=== PATIENT | female | born 1975 | race Caucasian/White ===

== ENCOUNTER 2019-06-25 20:06 | Inpatient (IN) | payer SELFPAY ==
[~2019-06-25] VITALS: Ht 160 cm; Wt 58.9 kg
[2019-06-25 21:22] LABS: Urine Bacteria FEW /hpf (None Seen); Urine Blood 1+ /uL (Negative); Urine Specific Gravity 1.003 (1.001-1.035); Urine WBC 1 /hpf (0 - 5)
[2019-06-25 22:02] LABS: Basophils # (auto) 0.1 uL; Eosinophils # (auto) 0 uL; Hematocrit 46.1 % (36.0-46.0); Hemoglobin 15.5 g/dL (12.2-16.2); Lymphocytes # (auto) 0.6 uL; Lymphocytes % (auto) 9.5 % (10.0-50.0); Mean Corpuscular Hgb Conc. 33.7 g/dL (32.0-36.0); Mean Corpuscular Volume 95.1 fL (80.0-100.0); Monocytes # (auto) 0.1 uL; Monocytes % (auto) 2.3 % (0.0-12.0); Neutrophils # (auto) 5.2 uL; Neutrophils % (auto) 87.2 % (37.0-80.0); Nucleated Red Blood Cells % 0.1 %; Platelet Count (auto) 294 10^3/uL (140-450); Red Blood Cells 4.85 10^6/uL (4.0-5.20); Red Cell Distribution Width 16.2 % (11.8-14.3)
[2019-06-25 22:20] LABS: INR 0.93 (0.9-1.15); Partial Thromboplastin Time 27.8 sec (23.64-32.05)
[2019-06-25 22:23] LABS: Alanine Aminotransferase 25 U/L (13-56); Albumin 4.3 g/dL (3.4-5.0); Anion Gap 13 (5-15); Blood Urea Nitrogen 8 mg/dL (7-18); Calcium 9.2 mg/dL (8.5-10.1); Carbon Dioxide 22 mmol/L (21-32); Chloride 103 mmol/L (98-107); Glucose 107 mg/dL (74-106); Potassium 3.9 mmol/L (3.5-5.1); Sodium 138 mmol/L (136-145)
[2019-06-25 22:28] LABS: Alkaline Phosphatase 122 U/L (45-117); Aspartate Aminotransferase 36 U/L (15-37); BUN/Creatinine Ratio 10.4; Bilirubin, Total 0.5 mg/dL (0.2-1.0); GFR African American 105 mL/min; GFR Non-African American 87 mL/min; Total Protein 8.7 g/dL (6.4-8.2)
[2019-06-25] MEDS ORDERED: cloNIDine HCL 0.1 MG TAB PO ONE (23:15)
[2019-06-26] MEDS ORDERED: LEVOFLOXACIN 750MG 150 ML IV ONE (03:45)
[2019-06-26] MEDS ORDERED: ALBUTEROL SULF 2.5 MG/0.5ML(0.5%) NEB SOLN NEB ONE (07:00)
[2019-06-26] MEDS ORDERED: chlordiazePOXIDE HCL 25 MG CAP PO PRN (07:00)
[2019-06-26] MEDS ORDERED: MORPHINE SULF INJ 2 MG/ML SYRINGE 1ML IV PRN (07:00)
[2019-06-26] MEDS ORDERED: IPRATROPIUM BROM 0.5 MG/2.5ML INH SOL NEB ONE (07:00)
[2019-06-26 07:41] LABS: Basophils # (auto) 0 uL; Basophils % (auto) 0.6 % (0.0-2.0); Eosinophils # (auto) 0 uL; Eosinophils % (auto) 0.1 % (0.0-7.0); Hematocrit 43.1 % (36.0-46.0); Hemoglobin 14.6 g/dL (12.2-16.2); Lymphocytes # (auto) 1.1 uL; Lymphocytes % (auto) 14.7 % (10.0-50.0); Mean Corpuscular Hemoglobin 32.3 pg (28.0-32.0); Mean Corpuscular Volume 95.2 fL (80.0-100.0); Monocytes # (auto) 0.8 uL; Monocytes % (auto) 10.3 % (0.0-12.0); Neutrophils # (auto) 5.6 uL; Neutrophils % (auto) 74.3 % (37.0-80.0); Platelet Count (auto) 242 10^3/uL (140-450); Red Blood Cells 4.53 10^6/uL (4.0-5.20); Red Cell Distribution Width 15.9 % (11.8-14.3); White Blood Cell 7.5 10^3/uL (4.4-10.8)
[2019-06-26 08:00] LABS: BUN/Creatinine Ratio 11.1; Calcium 9.3 mg/dL (8.5-10.1); Potassium 4.1 mmol/L (3.5-5.1)
[2019-06-26] MEDS: ALBUTEROL SULF 2.5 MG/0.5ML(0.5%) NEB SOLN NEB SCH ×4 (10:10→22:10)
[2019-06-26] MEDS: IPRATROPIUM BROM 0.5 MG/2.5ML INH SOL NEB SCH ×4 (10:10→22:10)
--- NOTE | 2019-06-26 10:20 | NUR ---
ER ADMIT TO 297B Assumed care of patient, awake and alert. No S/S of distress/SOB or pain. Instructed on POC and to call for assist PRN, will continue to monitor. Bed locked in the lowest position. Bed rails up x2. Call light in reach.
[2019-06-26 10:27] VITALS: BP 162/98
[2019-06-26] MEDS: PANTOPRAZOLE 40 MG TAB PO SCH (10:31)
[2019-06-26] MEDS: IBUPROFEN 600 MG TAB PO PRN ×2 (10:32→17:52)
[2019-06-26] MEDS: FOLIC ACID 1 MG TAB PO SCH (10:32)
[2019-06-26 10:33] VITALS: BP 152/100
[2019-06-26 11:59] VITALS: BP 125/100
[2019-06-26 12:00] VITALS: BP 148/98
[2019-06-26] MEDS ORDERED: LABETALOL HCL 5 MG/ML ML 20ML VIAL IV PRN ×2 (12:15)
[2019-06-26] MEDS ORDERED: PANT40TA2 PO (12:20)
[2019-06-26] MEDS ORDERED: NAPR-476 PO (12:20)
[2019-06-26] MEDS ORDERED: ALPR0.25 PO (12:22)
[2019-06-26] MEDS ORDERED: HYDR-4833 PO (12:22)
[2019-06-26] MEDS: guaiFENesin-DM 100/10mg/5ml SYR PO PRN (12:57)
--- NOTE | 2019-06-26 13:20 | NUR ---
DRUG SCREEN URINE OBTAINED AND SENT TO LAB.
[2019-06-26] MEDS ORDERED: cloNIDine HCL 0.1 MG TAB PO SCH (14:00)
[2019-06-26 14:01] LABS: Alcohol, Urine < 3.0 mg/dL (0-5); Amphetamine Screen, Urine NEGATIVE (NEGATIVE); Barbiturate Scree,Urine NEGATIVE (NEGATIVE); Benzodiazephine Screen, Urine NEGATIVE (NEGATIVE); Cannabinoid Screen, Urine NEGATIVE (NEGATIVE); Cocaine Screen, Urine NEGATIVE (NEGATIVE); Opiate Scree,Urine NEGATIVE (NEGATIVE); Phencyclidine Screen, Urine NEGATIVE (NEGATIVE)
[2019-06-26 16:52] VITALS: BP 149/89
--- NOTE | 2019-06-26 19:05 | NUR ---
CLOSING NOTE Patient is awake and alert. No S/S of distress/SOB or pain. Bed locked in the lowest position. Bed rails up x2. Call light in reach. Endorsed care to overnight stocker RN.
[2019-06-26 22:00] VITALS: BP 146/86
[2019-06-27] MEDS: ALBUTEROL SULF 2.5 MG/0.5ML(0.5%) NEB SOLN NEB SCH ×4 (02:07→14:38)
[2019-06-27] MEDS: IPRATROPIUM BROM 0.5 MG/2.5ML INH SOL NEB SCH ×4 (02:07→14:38)
[2019-06-27 05:28] VITALS: BP 132/95
[2019-06-27] MEDS: IBUPROFEN 600 MG TAB PO PRN (06:31)
--- NOTE | 2019-06-27 07:30 | NUR ---
RECEIVED REPORT FROM NIGHT NURSE. PATIENT RESTING IN BED, NO DISTRESS NOTED. WILL CONTINUE TO MONITOR.
[2019-06-27 09:00] VITALS: BP 146/96
[2019-06-27] MEDS ORDERED: cefTRIAXone 1GM/50ML D5W 50 ML IV SCH (09:00)
[2019-06-27] MEDS ORDERED: AZITHROMYCIN 500MG/ 250ML 250 ML IV SCH (10:00)
[2019-06-27] MEDS: guaiFENesin-DM 100/10mg/5ml SYR PO PRN (10:16)
[2019-06-27] MEDS: FOLIC ACID 1 MG TAB PO SCH (10:17)
[2019-06-27] MEDS: PANTOPRAZOLE 40 MG TAB PO SCH (10:17)
--- NOTE | 2019-06-27 14:25 | NUR ---
Discharge instructions given as ordered. Encourage to follow up with PMD as instructed. All questions and concerns addressed. Patient verbalized understanding. Medication reconciliation form completed and copy given to patient. Home medications held in Pharmacy returned to patient, and needed vaccines given. IV removed with catheter intact, pressure dressing applied. Telemetry unit returned to ICU. Patient taken to vehicle via wheelchair with all personal belongings, accompanied by staff and family member. No distress noted at time of departure.
== END 2019-06-27 14:14 | disposition home or self-care (01) | DRG 195 ==
LOC: ER 20:11 → TELE-WESTW 20:12 → ER 06-26 09:34
PROVIDERS: ADMIT Nurse Practitioner Family; ATTEND Nurse Practitioner Family
DX: J18.1 Lobar pneumonia, unspecified organism (principal); F17.210 Nicotine dependence, cigarettes, uncomplicated; F10.10 Alcohol abuse, uncomplicated; I10 Essential (primary) hypertension; K21.9 Gastro-esophageal reflux disease without esophagitis; J45.909 Unspecified asthma, uncomplicated; Z88.1 Allergy status to other antibiotic agents; Z88.5 Allergy status to narcotic agent
CPT/HCPCS: 36415; 71045; 80048; 80053; 80307; 81001; 81025; 83880; 84484; 85025; 85610; 85730; 87070; 87205; 93005; 94640; 96365; 96367; G0378; J0696; J1956

== ENCOUNTER 2020-10-25 14:52 | Inpatient (IN) | payer BC ==
[~2020-10-25] VITALS: Ht 160 cm; Wt 64.7 kg
[~2020-10-25 14:52] MED LIST: ALPR0.25 PO; HYDR-4833 PO; NAPR-476 PO; PANT40TA2 PO
[2020-10-25] MEDS ORDERED: SODIUM CHLORIDE 0.9% 1,000 ML IV ONE (15:30)
[2020-10-25] MEDS ORDERED: PANTOPRAZOLE 40 MG/10 ML VIAL INJ IV ONE (15:45)
[2020-10-25 15:47] LABS: Basophils # (auto) 0 10 ^3/uL (0-0.2); Basophils % (auto) 0.2 % (0.0-2.0); Eosinophils # (auto) 0 10 ^3/uL (0-0.8); Monocytes # (auto) 0.2 10 ^3/uL (0-1.3); Neutrophils # (auto) 5.3 10 ^3/uL (1.6-8.6); Red Blood Cells 1.27 10^6/uL (4.0-5.20)
[2020-10-25 15:50] LABS: Eosinophils % (auto) 0.3 % (0.0-7.0); Hematocrit 16.6 % (36.0-46.0); Lymphocytes # (auto) 1.2 10 ^3/uL (0.4-5.4); Lymphocytes % (auto) 17.5 % (10.0-50.0); Mean Corpuscular Hemoglobin 45.4 pg (28.0-32.0); Mean Corpuscular Hgb Conc. 34.7 g/dL (32.0-36.0); Mean Corpuscular Volume 130.7 fL (80.0-100.0); Monocytes % (auto) 2.7 % (0.0-12.0); Neutrophils % (auto) 79.3 % (37.0-80.0); Nucleated Red Blood Cells % 0.5 %; Platelet Count (auto) 93 10^3/uL (140-450); Red Cell Distribution Width 17.6 % (11.8-14.3); White Blood Cell 6.6 10^3/uL (4.4-10.8)
[2020-10-25 15:53] LABS: Albumin 2.5 g/dL (3.4-5.0); Calcium 7.9 mg/dL (8.5-10.1)
[2020-10-25 15:56] LABS: BUN/Creatinine Ratio 9.3; Bilirubin, Total 2.4 mg/dL (0.2-1.0); Total Protein 5.4 g/dL (6.4-8.2)
[2020-10-25 16:04] LABS: Hemoglobin 5.8 g/dL (12.2-16.2); Potassium 2.9 mmol/L (3.5-5.1)
[2020-10-25 16:06] LABS: INR 1.36 (0.9-1.15); Partial Thromboplastin Time 31.6 sec (23.0-31.2)
[2020-10-25] MEDS ORDERED: SODIUM CHL 3% 500 ML IV ONE (16:15)
[2020-10-25] MEDS ORDERED: POTASSIUM EFFERVESENT TAB 25 MEQ PO ONE (16:30)
[2020-10-25] MEDS ORDERED: PANTOPRAZOLE 40mg/50ML NS AE 50 ML IV ONE (16:30)
[2020-10-25 16:36] LABS: Platelet Count (auto) 93 10^3/uL (140-450)
[2020-10-25] MEDS ORDERED: MORPHINE SULF INJ 2 MG/ML SYRINGE 1ML IV PRN ×6 (16:45→17:15)
[2020-10-25] MEDS ORDERED: POTASSIUM CHLORIDE 60 MEQ, LIDOCAINE 1% (LOCAL ANESTH.) 6 ML in SODIUM CHL 0.9% 500 ML IV ONE (16:45)
[2020-10-25] MEDS ORDERED: NITROGLYCERIN 0.4 MG SL TAB SL PRN ×4 (16:45→17:15)
[2020-10-25] MEDS ORDERED: SOD CHL 0.9%/ KCL 20MEQ 1,000 ML IV ONE (16:45)
[2020-10-25] MEDS ORDERED: ACETAMINOPHEN 500 MG TAB PO ONE (16:45)
[2020-10-25] MEDS ORDERED: diphenhdrAMINE HCL 25 MG CAP PO PRN (16:45)
[2020-10-25] MEDS ORDERED: ALPR0.5T7 PO (16:58)
[2020-10-25] MEDS ORDERED: NAP500T PO (16:59)
[2020-10-25] MEDS ORDERED: DOCUSATE SOD 100 MG CAP PO PRN (17:00)
[2020-10-25] MEDS ORDERED: SUCRALFATE 1 GM/10 ML ORAL SUSP PO SCH (17:00)
[2020-10-25] MEDS ORDERED: ALBUAER3 IN (17:00)
[2020-10-25] MEDS ORDERED: ONDANSETRON HCL 4 MG/2 ML VIAL IV PRN (17:00)
[2020-10-25] MEDS ORDERED: SOD CHL 0.9%/ KCL 20MEQ 1,000 ML IV SCH (17:00)
[2020-10-25] MEDS ORDERED: ALUM & MAG HYDROX-SIMETH LIQ(MAALOX) 30 ML PO PRN (17:00)
[2020-10-25] MEDS ORDERED: LORazepam 0.5 MG TAB PO PRN (17:00)
[2020-10-25] MEDS ORDERED: SUCRALFATE 1 GM/10 ML ORAL SUSP PO ONE ×2 (17:00)
[2020-10-25] MEDS ORDERED: ALBUMIN 25% 100 ML IV ONE (17:15)
[2020-10-25] MEDS ORDERED: cefTRIAXone 1GM/50ML D5W 50 ML IV ONE (17:15)
[2020-10-25] MEDS ORDERED: ACETAMINOPHEN 325 MG TAB PO ONE (21:12)
[2020-10-25] MEDS: SOD CHL 0.9%/ KCL 20MEQ 1,000 ML IV SCH (21:53)
[2020-10-25] MEDS ORDERED: PANTOPRAZOLE 40 MG/10 ML VIAL INJ IV SCH (22:00)
[2020-10-25] MEDS: PROPRANOLOL HCL 20 MG TAB PO SCH (22:00)
[2020-10-25] MEDS: PANTOPRAZOLE 40 MG/10 ML VIAL INJ IV SCH (22:00)
[2020-10-25 22:07] LABS: Free T4 (Free Thyroxine) 1.11 ng/dL (0.89-1.76)
[2020-10-26] VITALS (16 sets, daily range): BP systolic 88–103; BP diastolic 39–75
[2020-10-26 00:08] LABS: T3 Total 0.6 ng/mL (0.60-1.81)
[2020-10-26] MEDS ORDERED: SOD CHL 0.9%/ KCL 20MEQ 1,000 ML IV SCH (01:05)
[2020-10-26] MEDS: ALBUMIN 25% 100 ML IV SCH ×2 (02:20→09:36)
[2020-10-26] MEDS: SOD CHL 0.9%/ KCL 20MEQ 1,000 ML IV SCH ×2 (06:18→19:40)
[2020-10-26] MEDS: SUCRALFATE 1 GM/10 ML ORAL SUSP PO SCH ×4 (06:51→22:01)
[2020-10-26 09:06] LABS: Cholesterol 69 mg/dL (< 200)
[2020-10-26] MEDS: cefTRIAXone 1GM/50ML D5W 50 ML IV SCH (09:08)
[2020-10-26 09:10] LABS: HDL Cholesterol 20 mg/dL (40-59); LDL Cholesterol 38 mg/dL (< 100); Triglycerides 89 mg/dL (< 150)
[2020-10-26 09:18] LABS: Urine Bacteria FEW /hpf (None Seen); Urine Blood 3+ /uL (Negative); Urine Specific Gravity 1.003 (1.001-1.035); Urine WBC 40 /hpf (0 - 5)
[2020-10-26 09:31] LABS: Sodium Urine 8 mmol/L (40-220)
[2020-10-26 09:40] LABS: Amphetamine Screen, Urine NEGATIVE (NEGATIVE); Barbiturate Scree,Urine NEGATIVE (NEGATIVE); Cannabinoid Screen, Urine NEGATIVE (NEGATIVE)
[2020-10-26 09:42] LABS: Alcohol, Urine < 3.0 mg/dL (0-10); Benzodiazephine Screen, Urine NEGATIVE (NEGATIVE); Cocaine Screen, Urine NEGATIVE (NEGATIVE); Opiate Scree,Urine NEGATIVE (NEGATIVE); Phencyclidine Screen, Urine NEGATIVE (NEGATIVE)
[2020-10-26] MEDS: SPIRONOLACTONE 25 MG TAB PO SCH (09:53)
[2020-10-26] MEDS: FUROSEMIDE 20 MG TAB PO SCH (09:53)
[2020-10-26] MEDS: PANTOPRAZOLE 40 MG/10 ML VIAL INJ IV SCH (09:54)
[2020-10-26] MEDS: PROPRANOLOL HCL 20 MG TAB PO SCH (09:54)
[2020-10-26] MEDS ORDERED: THIAMINE 100mg/ml INJ (200mg/2ml VIAL) IV ONE (10:45)
[2020-10-26] MEDS ORDERED: FOLIC ACID 1 MG in D5W 5% 50 ML INJ ONE (10:45)
[2020-10-26 11:00] LABS: Basophils # (auto) 0 10 ^3/uL (0-0.2); Basophils % (auto) 0.1 % (0.0-2.0); Eosinophils # (auto) 0 10 ^3/uL (0-0.8); Eosinophils % (auto) 0.1 % (0.0-7.0); Hemoglobin 9.2 g/dL (12.2-16.2); Lymphocytes # (auto) 0.6 10 ^3/uL (0.4-5.4); Monocytes # (auto) 0.1 10 ^3/uL (0-1.3); Neutrophils # (auto) 3.5 10 ^3/uL (1.6-8.6); White Blood Cell 4.2 10^3/uL (4.4-10.8)
[2020-10-26 11:02] LABS: Hematocrit 27.1 % (36.0-46.0); Lymphocytes % (auto) 14.1 % (10.0-50.0); Mean Corpuscular Hemoglobin 34.3 pg (28.0-32.0); Mean Corpuscular Hgb Conc. 33.9 g/dL (32.0-36.0); Monocytes % (auto) 3.5 % (0.0-12.0); Neutrophils % (auto) 82.2 % (37.0-80.0); Nucleated Red Blood Cells % 0.5 %; Platelet Count (auto) 60 10^3/uL (140-450); Red Blood Cells 2.68 10^6/uL (4.0-5.20)
[2020-10-26 11:10] LABS: Albumin 3.4 g/dL (3.4-5.0); Calcium 8.1 mg/dL (8.5-10.1); Potassium 4.3 mmol/L (3.5-5.1)
[2020-10-26 11:12] LABS: Red Cell Distribution Width 34.4 % (11.8-14.3)
[2020-10-26 11:13] LABS: BUN/Creatinine Ratio 7.1; Bilirubin, Total 4.2 mg/dL (0.2-1.0); Total Protein 6.1 g/dL (6.4-8.2)
[2020-10-26 12:28] LABS: Hepatitis A Ab IgM Negative; Hepatitis B Core IgM Negative
[2020-10-26 12:29] LABS: Hepatitis B Surface Antigen Negative (Negative); Hepatitis C Antibody Negative (Negative)
[2020-10-26] MEDS: PANTOPRAZOLE 40 MG TAB PO SCH (22:02)
[2020-10-27] VITALS: BP 96/65
[2020-10-27] MEDS: LORazepam 0.5 MG TAB PO PRN ×2 (00:43→21:53)
[2020-10-27 05:43] LABS: Basophils # (auto) 0 10 ^3/uL (0-0.2); Eosinophils # (auto) 0 10 ^3/uL (0-0.8); Hemoglobin 8.1 g/dL (12.2-16.2); Lymphocytes # (auto) 0.9 10 ^3/uL (0.4-5.4); Monocytes # (auto) 0.1 10 ^3/uL (0-1.3); Platelet Count (auto) 63 10^3/uL (140-450); White Blood Cell 3.9 10^3/uL (4.4-10.8)
[2020-10-27 05:47] LABS: Basophils % (auto) 0.2 % (0.0-2.0); Eosinophils % (auto) 0.3 % (0.0-7.0); Hematocrit 23.3 % (36.0-46.0); Lymphocytes % (auto) 23.7 % (10.0-50.0); Mean Corpuscular Hemoglobin 35.3 pg (28.0-32.0); Mean Corpuscular Hgb Conc. 34.8 g/dL (32.0-36.0); Mean Corpuscular Volume 101.4 fL (80.0-100.0); Monocytes % (auto) 3.1 % (0.0-12.0); Neutrophils # (auto) 2.8 10 ^3/uL (1.6-8.6); Neutrophils % (auto) 72.7 % (37.0-80.0); Nucleated Red Blood Cells % 0.6 %
[2020-10-27] MEDS: SUCRALFATE 1 GM/10 ML ORAL SUSP PO SCH ×4 (05:51→21:53)
[2020-10-27 05:58] LABS: INR 1.42 (0.9-1.15); Partial Thromboplastin Time 34.7 sec (23.0-31.2)
[2020-10-27 06:01] LABS: Potassium 4.1 mmol/L (3.5-5.1)
[2020-10-27 06:10] LABS: Albumin 3.4 g/dL (3.4-5.0); BUN/Creatinine Ratio 8.1; Bilirubin, Total 2.8 mg/dL (0.2-1.0); Calcium 7.9 mg/dL (8.5-10.1); Total Protein 5.9 g/dL (6.4-8.2)
[2020-10-27 06:34] LABS: Red Cell Distribution Width 34.3 % (11.8-14.3)
[2020-10-27 08:00] VITALS: BP 109/67
[2020-10-27] MEDS: cefTRIAXone 1GM/50ML D5W 50 ML IV SCH (08:59)
[2020-10-27 09:00] VITALS: BP 109/67
[2020-10-27] MEDS: SOD CHL 0.9%/ KCL 20MEQ 1,000 ML IV SCH (09:00)
[2020-10-27] MEDS: FUROSEMIDE 20 MG TAB PO SCH (10:29)
[2020-10-27] MEDS: SPIRONOLACTONE 25 MG TAB PO SCH (10:29)
[2020-10-27] MEDS: PANTOPRAZOLE 40 MG TAB PO SCH ×2 (10:29→21:53)
[2020-10-27] MEDS: THIAMINE 100mg/ml INJ (200mg/2ml VIAL) IV SCH (10:30)
[2020-10-27] MEDS ORDERED: LIDOCAINE VISCOUS 2% 15ML UD ONE (10:36)
[2020-10-27] MEDS ORDERED: diphenhdrAMINE HCL 50 MG/1 ML VL ONE (10:37)
[2020-10-27] MEDS ORDERED: FLUMAZENIL 0.1 MG/ML INJ 10ML MDV IV ONE (10:42)
[2020-10-27] MEDS ORDERED: NALOXONE HCL 0.4 MG/ML VIAL ONE (10:42)
[2020-10-27] MEDS: MIDAZOLAM HCL 5 MG/ML-1ML VIAL ONE ×2 (11:53→11:58)
[2020-10-27] MEDS: fentaNYL CITRATE 100 MCG/2 ML VL ONE ×2 (11:53→11:58)
[2020-10-27] MEDS: FOLIC ACID 1 MG in D5W 5% 50 ML INJ SCH (13:25)
[2020-10-27 16:00] VITALS: BP 106/62
[2020-10-27] MEDS ORDERED: LORazepam 2MG/ML-1ML VIAL ONE (21:47)
[2020-10-28] VITALS: BP 97/80
[2020-10-28 05:00] VITALS: BP 103/67
[2020-10-28 05:45] LABS: Basophils # (auto) 0 10 ^3/uL (0-0.2); Eosinophils # (auto) 0 10 ^3/uL (0-0.8); Hemoglobin 7.3 g/dL (12.2-16.2); Lymphocytes % (auto) 27.9 % (10.0-50.0); Monocytes # (auto) 0.1 10 ^3/uL (0-1.3); Neutrophils # (auto) 2.3 10 ^3/uL (1.6-8.6); White Blood Cell 3.4 10^3/uL (4.4-10.8)
[2020-10-28 05:46] LABS: Basophils % (auto) 0.3 % (0.0-2.0); Eosinophils % (auto) 0.6 % (0.0-7.0); Mean Corpuscular Hemoglobin 34.9 pg (28.0-32.0); Mean Corpuscular Hgb Conc. 34.9 g/dL (32.0-36.0); Mean Corpuscular Volume 99.7 fL (80.0-100.0); Monocytes % (auto) 3.9 % (0.0-12.0); Neutrophils % (auto) 67.3 % (37.0-80.0); Nucleated Red Blood Cells % 0.7 %; Platelet Count (auto) 61 10^3/uL (140-450)
[2020-10-28 05:50] LABS: Red Cell Distribution Width 33.8 % (11.8-14.3)
[2020-10-28 06:09] LABS: Albumin 3.1 g/dL (3.4-5.0); Calcium 7.8 mg/dL (8.5-10.1); Potassium 3.6 mmol/L (3.5-5.1)
[2020-10-28 06:14] LABS: BUN/Creatinine Ratio 8.8; Bilirubin, Total 1.6 mg/dL (0.2-1.0); Total Protein 5.3 g/dL (6.4-8.2)
[2020-10-28] MEDS: SUCRALFATE 1 GM/10 ML ORAL SUSP PO SCH ×2 (06:26→11:23)
[2020-10-28 08:00] VITALS: BP 100/68
[2020-10-28] MEDS: FOLIC ACID 1 MG in D5W 5% 50 ML INJ SCH (10:00)
[2020-10-28] MEDS: THIAMINE 100mg/ml INJ (200mg/2ml VIAL) IV SCH (10:25)
[2020-10-28] MEDS: cefTRIAXone 1GM/50ML D5W 50 ML IV SCH (10:25)
[2020-10-28] MEDS: SPIRONOLACTONE 25 MG TAB PO SCH (10:26)
[2020-10-28] MEDS: FUROSEMIDE 20 MG TAB PO SCH (10:28)
[2020-10-28] MEDS: PANTOPRAZOLE 40 MG TAB PO SCH (10:29)
[2020-10-28 14:05] VITALS: BP 100/68
== END 2020-10-28 15:32 | disposition home or self-care (01) | DRG 811 ==
LOC: ER 14:52 → TELE 14:53 → TELE-CENTR 10-26 03:15
PROVIDERS: ADMIT Hospitalist; ATTEND Internal Medicine
PROC: 30233K1 Transfusion of Nonautologous Frozen Plasma into Peripheral Vein, Percutaneous Approach (ICD-10-PCS; 2020-10-26)
PROC: 30233N1 Transfusion of Nonautologous Red Blood Cells into Peripheral Vein, Percutaneous Approach (ICD-10-PCS; 2020-10-26)
PROC: 0DJ08ZZ Inspection of Upper Intestinal Tract, Via Natural or Artificial Opening Endoscopic (ICD-10-PCS; principal; 2020-10-27 11:59)
DX: D50.0 Iron deficiency anemia secondary to blood loss (chronic) (principal); E43 Unspecified severe protein-calorie malnutrition; N39.0 Urinary tract infection, site not specified; D68.4 Acquired coagulation factor deficiency; D84.9 Immunodeficiency, unspecified; E87.1 Hypo-osmolality and hyponatremia; K29.00 Acute gastritis without bleeding; Z20.822 Contact with and (suspected) exposure to COVID-19; K21.9 Gastro-esophageal reflux disease without esophagitis; K29.20 Alcoholic gastritis without bleeding; K57.30 Diverticulosis of large intestine without perforation or abscess without bleeding; K70.30 Alcoholic cirrhosis of liver without ascites; K72.90 Hepatic failure, unspecified without coma; K80.20 Calculus of gallbladder without cholecystitis without obstruction; N92.0 Excessive and frequent menstruation with regular cycle; D69.6 Thrombocytopenia, unspecified; D75.89 Other specified diseases of blood and blood-forming organs; E03.9 Hypothyroidism, unspecified; E87.6 Hypokalemia; E87.70 Fluid overload, unspecified; F17.210 Nicotine dependence, cigarettes, uncomplicated; F41.9 Anxiety disorder, unspecified; G89.4 Chronic pain syndrome; Z83.3 Family history of diabetes mellitus; Z82.49 Family history of ischemic heart disease and other diseases of the circulatory system; Z79.899 Other long term (current) drug therapy; Z79.891 Long term (current) use of opiate analgesic; Z79.01 Long term (current) use of anticoagulants; Z88.8 Allergy status to other drugs, medicaments and biological substances; Z88.5 Allergy status to narcotic agent; Z68.25 Body mass index [BMI] 25.0-25.9, adult
CPT/HCPCS: 36415; 43235; 71045; 74176; 76856; 80053; 80061; 80074; 80307; 81001; 82140; 82270; 82533; 83036; 83540; 83550; 83735; 83880; 83930; 84133; 84300; 84439; 84443; 84480; 84484; 84702; 85025; 85384; 85610; 85730; 86850; 86900; 86901; 86920; 87040; 87086; 87426; 87493; G0378; J0696; J2001; J2250; J2405; J7060; P9047

== ENCOUNTER 2022-12-26 17:51 | Inpatient (IN) | payer BC, MEDICAID ==
[~2022-12-26] VITALS: Ht 162.6 cm; Wt 63.4 kg
[~2022-12-26 17:51] MED LIST changes: +ALBUAER3 IN; -ALPR0.25 PO; +ALPR0.5T7 PO; -HYDR-4833 PO; +NAP500T PO; -NAPR-476 PO
[2022-12-26 21:06] LABS: Albumin 3.6 g/dL (3.4-5.0); BUN/Creatinine Ratio 28.2; Bilirubin, Total 0.8 mg/dL (0.2-1.0); Calcium 9.2 mg/dL (8.5-10.1); Potassium 3.6 mmol/L (3.5-5.1); Total Protein 7.5 g/dL (6.4-8.2)
[2022-12-26 21:23] LABS: Basophils # (auto) 0 10 ^3/uL (0-0.2); Basophils % (auto) 0.3 % (0.0-2.0); Eosinophils # (auto) 0 10 ^3/uL (0-0.8); Hematocrit 47.7 % (36.0-46.0); Hemoglobin 16.6 g/dL (12.2-16.2); Lymphocytes # (auto) 1.4 10 ^3/uL (0.4-5.4); Lymphocytes % (auto) 12.4 % (10.0-50.0); Mean Corpuscular Hgb Conc. 34.8 g/dL (32.0-36.0); Mean Corpuscular Volume 94.9 fL (80.0-100.0); Monocytes # (auto) 0.4 10 ^3/uL (0-1.3); Monocytes % (auto) 3.6 % (0.0-12.0); Neutrophils # (auto) 9.6 10 ^3/uL (1.6-8.6); Neutrophils % (auto) 83.7 % (37.0-80.0); Nucleated Red Blood Cells % 0.5 %; Red Blood Cells 5.03 10^6/uL (4.0-5.20); Red Cell Distribution Width 13.9 % (11.8-14.3); White Blood Cell 11.5 10^3/uL (4.4-10.8)
[2022-12-26 21:43] LABS: INR 1.19 (0.9-1.15); Partial Thromboplastin Time 34.5 sec (24.6-33.4)
[2022-12-27] MEDS ORDERED: LORazepam 2MG/ML-1ML VIAL IV ONE (04:00)
[2022-12-27] MEDS ORDERED: LORazepam 2MG/ML-1ML VIAL IV PRN ×3 (04:30→17:30)
[2022-12-27] MEDS ORDERED: DOCUSATE SOD 100 MG CAP PO PRN (05:00)
[2022-12-27] MEDS ORDERED: ALPRAZolam 0.5 MG TAB PO PRN (05:00)
[2022-12-27] MEDS ORDERED: ONDANSETRON HCL 4 MG/2 ML VIAL IV PRN (05:00)
[2022-12-27] MEDS ORDERED: IBUPROFEN 600 MG TAB PO PRN (05:00)
[2022-12-27] MEDS ORDERED: AZITHROMYCIN 500MG/ 250ML 250 ML IV ONE (05:00)
[2022-12-27] MEDS ORDERED: NITROGLYCERIN 0.4 MG SL TAB SL PRN (05:00)
[2022-12-27] MEDS ORDERED: SOD CHL 0.45% 1,000 ML IV SCH (05:00)
[2022-12-27] MEDS ORDERED: TEMAZEPAM 15 MG CAP PO PRN (05:00)
[2022-12-27 05:47] LABS: Basophils # (auto) 0 10 ^3/uL (0-0.2); Basophils % (auto) 0.3 % (0.0-2.0); Eosinophils # (auto) 0 10 ^3/uL (0-0.8); Hematocrit 45.4 % (36.0-46.0); Hemoglobin 15.8 g/dL (12.2-16.2); Lymphocytes # (auto) 1.7 10 ^3/uL (0.4-5.4); Lymphocytes % (auto) 10.8 % (10.0-50.0); Mean Corpuscular Hgb Conc. 34.7 g/dL (32.0-36.0); Mean Corpuscular Volume 95.2 fL (80.0-100.0); Monocytes # (auto) 0.8 10 ^3/uL (0-1.3); Monocytes % (auto) 5.1 % (0.0-12.0); Neutrophils # (auto) 13.1 10 ^3/uL (1.6-8.6); Neutrophils % (auto) 83.8 % (37.0-80.0); Nucleated Red Blood Cells % 0.1 %; Red Blood Cells 4.78 10^6/uL (4.0-5.20); Red Cell Distribution Width 14.3 % (11.8-14.3); White Blood Cell 15.6 10^3/uL (4.4-10.8)
[2022-12-27 06:02] LABS: Albumin 3.7 g/dL (3.4-5.0); Calcium 9.7 mg/dL (8.5-10.1); Potassium 3.6 mmol/L (3.5-5.1)
[2022-12-27 06:22] LABS: Bilirubin, Total 0.8 mg/dL (0.2-1.0); Total Protein 7.8 g/dL (6.4-8.2)
[2022-12-27] MEDS ORDERED: HALOPERIDOL LACTATE 5 MG/ML INJ VIAL IM ONE (06:45)
[2022-12-27] MEDS ORDERED: cefTRIAXone 1GM/50ML D5W 50 ML IV ONE (13:00)
[2022-12-27 13:59] LABS: Urine Bacteria NONE SEEN /hpf (None Seen); Urine Blood Negative /uL (Negative); Urine Mucus FEW (None Seen); Urine Specific Gravity 1.036 (1.001-1.035); Urine WBC 34 /hpf (0 - 5)
[2022-12-27 14:52] LABS: Amphetamine Screen, Urine NEGATIVE (NEGATIVE); Barbiturate Scree,Urine NEGATIVE (NEGATIVE); Benzodiazephine Screen, Urine POSITIVE (NEGATIVE); Cannabinoid Screen, Urine POSITIVE (NEGATIVE); Cocaine Screen, Urine NEGATIVE (NEGATIVE)
[2022-12-27 15:01] LABS: Opiate Scree,Urine POSITIVE (NEGATIVE); Phencyclidine Screen, Urine NEGATIVE (NEGATIVE)
[2022-12-27] MEDS: AZITHROMYCIN 500MG/ 250ML 250 ML IV SCH (15:34)
[2022-12-27] MEDS: PANTOPRAZOLE 40 MG/10 ML VIAL INJ IV SCH (16:19)
[2022-12-27] MEDS: SODIUM CHLORIDE 0.9% 1,000 ML IV SCH ×2 (16:20→21:00)
[2022-12-28 00:50] VITALS: BP 121/72
[2022-12-28 05:00] VITALS: BP 127/62
[2022-12-28] MEDS: SODIUM CHLORIDE 0.9% 1,000 ML IV SCH ×2 (05:00→13:00)
[2022-12-28 06:09] LABS: Basophils # (auto) 0 10 ^3/uL (0-0.2); Basophils % (auto) 0.1 % (0.0-2.0); Eosinophils # (auto) 0 10 ^3/uL (0-0.8); Hematocrit 44.2 % (36.0-46.0); Hemoglobin 15.1 g/dL (12.2-16.2); Lymphocytes # (auto) 2.2 10 ^3/uL (0.4-5.4); Mean Corpuscular Hemoglobin 32.7 pg (28.0-32.0); Mean Corpuscular Hgb Conc. 34.3 g/dL (32.0-36.0); Mean Corpuscular Volume 95.3 fL (80.0-100.0); Monocytes # (auto) 0.6 10 ^3/uL (0-1.3); Monocytes % (auto) 4.5 % (0.0-12.0); Neutrophils # (auto) 10.7 10 ^3/uL (1.6-8.6); Neutrophils % (auto) 79.4 % (37.0-80.0); Nucleated Red Blood Cells % 0.1 %; Red Blood Cells 4.63 10^6/uL (4.0-5.20); Red Cell Distribution Width 14.7 % (11.8-14.3); White Blood Cell 13.4 10^3/uL (4.4-10.8)
[2022-12-28 06:22] LABS: Albumin 3.7 g/dL (3.4-5.0); BUN/Creatinine Ratio 41.3; Calcium 9.3 mg/dL (8.5-10.1); Potassium 3.5 mmol/L (3.5-5.1)
[2022-12-28 06:25] LABS: Bilirubin, Total 0.9 mg/dL (0.2-1.0); Total Protein 6.9 g/dL (6.4-8.2)
[2022-12-28 09:00] VITALS: BP 134/73
[2022-12-28] MEDS: PANTOPRAZOLE 40 MG/10 ML VIAL INJ IV SCH (09:36)
[2022-12-28] MEDS: THIAMINE 100mg/ml INJ (200mg/2ml VIAL) IV SCH (09:36)
[2022-12-28] MEDS: cefTRIAXone 1GM/50ML D5W 50 ML IV SCH (09:36)
[2022-12-28] MEDS: AZITHROMYCIN 500MG/ 250ML 250 ML IV SCH (11:26)
[2022-12-28 13:00] VITALS: BP 137/88
[2022-12-28] MEDS ORDERED: HYDROcodone-ACET 5/325MG TAB PO PRN (16:00)
[2022-12-28] MEDS ORDERED: HYDROcodone-ACET 5/325MG TAB PO ONE (16:00)
[2022-12-28 18:11] VITALS: BP 132/78
[2022-12-28] MEDS ORDERED: ALPRAZolam 0.5 MG TAB PO PRN (20:00)
[2022-12-28 22:00] VITALS: BP 153/86
[2022-12-29 05:00] VITALS: BP 119/77
[2022-12-29 06:12] LABS: Basophils # (auto) 0 10 ^3/uL (0-0.2); Basophils % (auto) 0.2 % (0.0-2.0); Eosinophils # (auto) 0 10 ^3/uL (0-0.8); Eosinophils % (auto) 0.1 % (0.0-7.0); Hematocrit 47.6 % (36.0-46.0); Hemoglobin 15.7 g/dL (12.2-16.2); Lymphocytes # (auto) 2.5 10 ^3/uL (0.4-5.4); Lymphocytes % (auto) 20.3 % (10.0-50.0); Mean Corpuscular Hemoglobin 32.6 pg (28.0-32.0); Mean Corpuscular Volume 98.7 fL (80.0-100.0); Monocytes # (auto) 0.7 10 ^3/uL (0-1.3); Monocytes % (auto) 5.4 % (0.0-12.0); Neutrophils # (auto) 9.1 10 ^3/uL (1.6-8.6); Nucleated Red Blood Cells % 0.2 %; Red Blood Cells 4.82 10^6/uL (4.0-5.20); Red Cell Distribution Width 14.6 % (11.8-14.3); White Blood Cell 12.2 10^3/uL (4.4-10.8)
[2022-12-29 07:46] LABS: BUN/Creatinine Ratio 28.6; Calcium 9.2 mg/dL (8.5-10.1); Potassium 4.3 mmol/L (3.5-5.1)
[2022-12-29 09:00] VITALS: BP 137/81
[2022-12-29] MEDS: PANTOPRAZOLE 40 MG/10 ML VIAL INJ IV SCH (10:05)
[2022-12-29] MEDS: cefTRIAXone 1GM/50ML D5W 50 ML IV SCH (10:06)
[2022-12-29] MEDS: THIAMINE 100mg/ml INJ (200mg/2ml VIAL) IV SCH (10:06)
[2022-12-29] MEDS: AZITHROMYCIN 500MG/ 250ML 250 ML IV SCH (11:15)
[2022-12-29 13:00] VITALS: BP 140/86
[2022-12-29 17:00] VITALS: BP 127/82
== END 2022-12-29 20:00 | disposition left against medical advice (07) | DRG 871 ==
LOC: EDUNIT# 17:51 → EDBD 17:51 → ER 17:51 → TELE 12-27 05:00 → TELE-EAST 12-27 23:30
PROVIDERS: ADMIT Nurse Practitioner Family; ATTEND Internal Medicine
DX: A41.9 Sepsis, unspecified organism (principal); G93.41 Metabolic encephalopathy; J18.9 Pneumonia, unspecified organism; N39.0 Urinary tract infection, site not specified; K74.60 Unspecified cirrhosis of liver; E86.0 Dehydration; F17.210 Nicotine dependence, cigarettes, uncomplicated; K21.9 Gastro-esophageal reflux disease without esophagitis; M54.50 Low back pain, unspecified; Z53.29 Procedure and treatment not carried out because of patient's decision for other reasons; R79.89 Other specified abnormal findings of blood chemistry; F10.10 Alcohol abuse, uncomplicated; J06.9 Acute upper respiratory infection, unspecified; Z20.822 Contact with and (suspected) exposure to COVID-19; G89.29 Other chronic pain; K76.82 Hepatic encephalopathy; Z79.891 Long term (current) use of opiate analgesic; Z88.6 Allergy status to analgesic agent; Z82.49 Family history of ischemic heart disease and other diseases of the circulatory system; Z83.3 Family history of diabetes mellitus
CPT/HCPCS: 36415; 70450; 70551; 71045; 80048; 80053; 80307; 81001; 82140; 83735; 85025; 85610; 85730; 87086; 87278; 87426; 95819; 96365; 96367; 96372; 96375; 99291; C9113; G0378; J0696

== ENCOUNTER 2023-05-24 10:12 | Emergency (ER) | payer OTHER ==
[~2023-05-24] VITALS: Ht 160 cm; Wt 63.6 kg
[2023-05-24] MEDS ORDERED: SODIUM CHLORIDE 0.9% 1,000 ML IV ONE (10:30)
[2023-05-24 10:56] LABS: Albumin 3.7 g/dL (3.4-5.0); Calcium 8.9 mg/dL (8.5-10.1); Potassium 3.3 mmol/L (3.5-5.1)
[2023-05-24 10:59] LABS: BUN/Creatinine Ratio 17.9 (10.0-20.0); Bilirubin, Total 0.7 mg/dL (0.2-1.0); Total Protein 7.4 g/dL (6.4-8.2)
[2023-05-24 11:00] LABS: Basophils # (auto) 0.1 10 ^3/uL (0-0.2); Basophils % (auto) 0.6 % (0.0-2.0); Eosinophils # (auto) 0 10 ^3/uL (0-0.8); Hematocrit 44.7 % (36.0-46.0); Hemoglobin 15.3 g/dL (12.2-16.2); Lymphocytes # (auto) 1.5 10 ^3/uL (0.4-5.4); Lymphocytes % (auto) 14.5 % (10.0-50.0); Mean Corpuscular Hemoglobin 32.6 pg (28.0-32.0); Mean Corpuscular Hgb Conc. 34.2 g/dL (32.0-36.0); Mean Corpuscular Volume 95.3 fL (80.0-100.0); Monocytes # (auto) 0.4 10 ^3/uL (0-1.3); Monocytes % (auto) 4.2 % (0.0-12.0); Neutrophils # (auto) 8.1 10 ^3/uL (1.6-8.6); Neutrophils % (auto) 80.7 % (37.0-80.0); Red Blood Cells 4.69 10^6/uL (4.0-5.20); Red Cell Distribution Width 13.6 % (11.8-14.3)
[2023-05-24 16:00] VITALS: BP 121/70; PULSE 68; RESP 15; TEMP 98.6; O2SAT 99
== END 2023-05-24 16:22 | disposition home or self-care (01) ==
LOC: ER 10:12
DX: R11.2 Nausea with vomiting, unspecified (principal); R10.84 Generalized abdominal pain; R19.7 Diarrhea, unspecified; R10.2 Pelvic and perineal pain; K21.9 Gastro-esophageal reflux disease without esophagitis; F17.210 Nicotine dependence, cigarettes, uncomplicated; Z90.49 Acquired absence of other specified parts of digestive tract; Z79.899 Other long term (current) drug therapy
CPT/HCPCS: 36415; 76705; 76801; 76817; 80053; 82140; 84484; 84702; 85025; 96360; 99284; J7030

== ENCOUNTER 2024-04-02 23:33 | Inpatient (IN) | payer OTHER ==
[~2024-04-02] VITALS: Ht 160 cm; Wt 72.7 kg
[~2024-04-02 23:33] MED LIST changes: +NICO7DIS19 TD; +PROM25TA10 PO; +ZOFR4T SL
[2024-04-03] VITALS (8 sets, daily range): BP systolic 130–148; BP diastolic 70–83; PULSE 64–89; RESP 16–20; TEMP 98–98.4; O2SAT 93–99
[2024-04-03 00:32] LABS: Basophils # (auto) 0.1 10 ^3/uL (0-0.2); Basophils % (auto) 0.6 % (0.0-2.0); Eosinophils # (auto) 0 10 ^3/uL (0-0.8); Eosinophils % (auto) 0.3 % (0.0-7.0); Hematocrit 35.7 % (36.0-46.0); Hemoglobin 11.7 g/dL (12.2-16.2); Lymphocytes # (auto) 1.1 10 ^3/uL (0.4-5.4); Lymphocytes % (auto) 13.2 % (10.0-50.0); Mean Corpuscular Hemoglobin 27.2 pg (28.0-32.0); Mean Corpuscular Hgb Conc. 32.9 g/dL (32.0-36.0); Mean Corpuscular Volume 82.7 fL (80.0-100.0); Monocytes # (auto) 0.4 10 ^3/uL (0-1.3); Monocytes % (auto) 4.6 % (0.0-12.0); Neutrophils # (auto) 6.8 10 ^3/uL (1.6-8.6); Neutrophils % (auto) 81.3 % (37.0-80.0); Red Blood Cells 4.32 10^6/uL (4.0-5.20); Red Cell Distribution Width 19.9 % (11.8-14.3); White Blood Cell 8.3 10^3/uL (4.4-10.8)
[2024-04-03 00:44] LABS: INR 1.01 (0.9-1.15); Prothrombin Time 10.7 sec (9.3-11.8)
[2024-04-03 00:51] LABS: Alanine Aminotransferase 21 U/L (7-40); Albumin 3.7 g/dL (3.2-4.8); Alkaline Phosphatase 85 U/L (46-116); Anion Gap 5 (5-15); Aspartate Aminotransferase 29 U/L (13-40); BUN/Creatinine Ratio 12.3 (10.0-20.0); Blood Urea Nitrogen 10 mg/dL (9-23); Calcium 9.5 mg/dL (8.7-10.4); Carbon Dioxide 27 mmol/L (20-30); Chloride 109 mmol/L (98-107); Glucose 110 mg/dL (74-106); Sodium 141 mmol/L (136-145)
[2024-04-03 00:52] LABS: Bilirubin, Total 0.5 mg/dL (0.2-1.0); Total Protein 6.2 g/dL (5.7-8.2)
[2024-04-03] MEDS: FUROSEMIDE 100 MG/10ML VIAL IV ONE (02:43)
[2024-04-03] MEDS ORDERED: DOCUSATE SOD 100 MG CAP PO PRN (05:30)
[2024-04-03] MEDS ORDERED: IBUPROFEN 600 MG TAB PO PRN (05:30)
[2024-04-03] MEDS ORDERED: hydrALAZINE HCL 20 MG/ML VL IV PRN (05:30)
[2024-04-03] MEDS ORDERED: ONDANSETRON HCL 4 MG/2 ML VIAL IV PRN (05:30)
[2024-04-03] MEDS ORDERED: NITROGLYCERIN 0.4 MG SL TAB SL PRN (05:30)
[2024-04-03] MEDS ORDERED: ALBUTEROL SULF 2.5 MG/0.5ML(0.5%) NEB SOLN NEB PRN (05:30)
[2024-04-03] MEDS ORDERED: MORPHINE SULFATE INJ 2 MG/ml SYRG IV PRN (05:30)
[2024-04-03 05:57] LABS: Basophils # (auto) 0.1 10 ^3/uL (0-0.2); Basophils % (auto) 0.7 % (0.0-2.0); Eosinophils # (auto) 0 10 ^3/uL (0-0.8); Eosinophils % (auto) 0.2 % (0.0-7.0); Hematocrit 36.9 % (36.0-46.0); Hemoglobin 12.4 g/dL (12.2-16.2); Lymphocytes # (auto) 1.1 10 ^3/uL (0.4-5.4); Lymphocytes % (auto) 13.2 % (10.0-50.0); Mean Corpuscular Hemoglobin 27.4 pg (28.0-32.0); Mean Corpuscular Hgb Conc. 33.6 g/dL (32.0-36.0); Mean Corpuscular Volume 81.6 fL (80.0-100.0); Monocytes # (auto) 0.4 10 ^3/uL (0-1.3); Monocytes % (auto) 4.9 % (0.0-12.0); Neutrophils # (auto) 6.7 10 ^3/uL (1.6-8.6); Nucleated Red Blood Cells % 0.1 %; Red Blood Cells 4.52 10^6/uL (4.0-5.20); Red Cell Distribution Width 20.1 % (11.8-14.3); White Blood Cell 8.3 10^3/uL (4.4-10.8)
[2024-04-03 06:22] LABS: Alanine Aminotransferase 25 U/L (7-40); Albumin 4.2 g/dL (3.2-4.8); Alkaline Phosphatase 95 U/L (46-116); Anion Gap 5 (5-15); BUN/Creatinine Ratio 13.6 (10.0-20.0); Blood Urea Nitrogen 12 mg/dL (9-23); Calcium 9.9 mg/dL (8.7-10.4); Carbon Dioxide 30 mmol/L (20-30); Chloride 105 mmol/L (98-107); Glucose 116 mg/dL (74-106); Potassium 3.4 mmol/L (3.5-5.1); Sodium 140 mmol/L (136-145)
[2024-04-03 06:23] LABS: Aspartate Aminotransferase 31 U/L (13-40); Bilirubin, Total 0.6 mg/dL (0.2-1.0); Total Protein 6.9 g/dL (5.7-8.2)
[2024-04-03] MEDS: SODIUM CHLOR 0.9% PF (SALINE LOCK) 10ML VIAL/SYR IV SCH (06:25)
[2024-04-03] MEDS: FUROSEMIDE 40 MG/4 ML VIAL IV SCH (10:00)
[2024-04-03] MEDS: FAMOTIDINE (10MG/ML) 2ML VL IV SCH (10:55)
[2024-04-03] MEDS: CARVEDILOL 3.125 MG TAB PO SCH (10:56)
[2024-04-03] MEDS: ASPirin 81 mg TAB PO SCH (10:57)
[2024-04-03] MEDS: POTASSIUM EFFERVESENT TAB 25 MEQ PO ONE (12:45)
[2024-04-03 17:35] LABS: Amphetamine Screen, Urine Neg (NEGATIVE); Barbiturate Scree,Urine Neg (NEGATIVE); Benzodiazephine Screen, Urine Neg (NEGATIVE); Cannabinoid Screen, Urine Neg (NEGATIVE); Cocaine Screen, Urine Neg (NEGATIVE); Opiate Scree,Urine Neg (NEGATIVE); Phencyclidine Screen, Urine Neg (NEGATIVE)
[2024-04-04] VITALS (11 sets, daily range): BP systolic 114–153; BP diastolic 67–86; PULSE 52–82; RESP 17–18; TEMP 97.5–98.8; O2SAT 95–98
[2024-04-04 06:37] LABS: Basophils # (auto) 0.1 10 ^3/uL (0-0.2); Basophils % (auto) 0.7 % (0.0-2.0); Eosinophils # (auto) 0 10 ^3/uL (0-0.8); Eosinophils % (auto) 0.2 % (0.0-7.0); Hematocrit 39.8 % (36.0-46.0); Hemoglobin 13.5 g/dL (12.2-16.2); Lymphocytes # (auto) 1.6 10 ^3/uL (0.4-5.4); Lymphocytes % (auto) 16.3 % (10.0-50.0); Mean Corpuscular Hemoglobin 27.4 pg (28.0-32.0); Mean Corpuscular Hgb Conc. 33.8 g/dL (32.0-36.0); Mean Corpuscular Volume 81.1 fL (80.0-100.0); Monocytes # (auto) 0.5 10 ^3/uL (0-1.3); Monocytes % (auto) 5.2 % (0.0-12.0); Neutrophils # (auto) 7.8 10 ^3/uL (1.6-8.6); Neutrophils % (auto) 77.6 % (37.0-80.0); Nucleated Red Blood Cells % 0.1 %; Red Blood Cells 4.91 10^6/uL (4.0-5.20); Red Cell Distribution Width 20.1 % (11.8-14.3)
[2024-04-04 06:56] LABS: Alanine Aminotransferase 26 U/L (7-40); Albumin 4.3 g/dL (3.2-4.8); Alkaline Phosphatase 102 U/L (46-116); Anion Gap 5 (5-15); Aspartate Aminotransferase 24 U/L (13-40); BUN/Creatinine Ratio 18.6 (10.0-20.0); Bilirubin, Total 0.7 mg/dL (0.2-1.0); Blood Urea Nitrogen 18 mg/dL (9-23); Calcium 9.9 mg/dL (8.5-10.1); Carbon Dioxide 29 mmol/L (20-30); Chloride 104 mmol/L (98-107); Glucose 111 mg/dL (74-106); Potassium 3.3 mmol/L (3.5-5.1); Sodium 138 mmol/L (136-145); Total Protein 7.1 g/dL (5.7-8.2)
[2024-04-04] MEDS: POTASSIUM EFFERVESENT TAB 25 MEQ PO ONE (13:19)
[2024-04-04] MEDS: SODIUM CHLORIDE 0.9% 1,000 ML IV SCH (18:34)
[2024-04-04] MEDS: Ensure HIGH Protein Chocolate 8oz Bottle PO SCH (19:44)
[2024-04-05] VITALS (8 sets, daily range): BP systolic 138–156; BP diastolic 71–95; PULSE 54–91; RESP 17–18; TEMP 98–99.2; O2SAT 92–97
[2024-04-05 12:55] LABS: Chloride 103 mmol/L (98-107); Potassium 3.1 mmol/L (3.5-5.1); Sodium 134 mmol/L (136-145)
[2024-04-05 12:56] LABS: Anion Gap 7 (5-15); Calcium 10.1 mg/dL (8.7-10.4); Carbon Dioxide 24 mmol/L (20-30)
[2024-04-05 13:01] LABS: BUN/Creatinine Ratio 21.7 (10.0-20.0); Blood Urea Nitrogen 20 mg/dL (9-23); Glucose 99 mg/dL (74-106)
[2024-04-05] MEDS: POTASSIUM CHLORIDE 60 MEQ, LIDOCAINE 1% (LOCAL ANESTH.) 6 ML in SODIUM CHL 0.9% 500 ML IV ONE (17:09)
[2024-04-05] MEDS ORDERED: ESTR0.5T5 PO (17:17)
[2024-04-05] MEDS ORDERED: OXY5T PO (17:17)
[2024-04-05] MEDS ORDERED: PREG200C19 PO (17:17)
[2024-04-05] MEDS ORDERED: URSO300C2 PO (17:17)
[2024-04-05] MEDS ORDERED: MORP1TAB12 PO (17:17)
[2024-04-05] MEDS ORDERED: RIFA550T PO (17:17)
[2024-04-05] MEDS ORDERED: ALLO300T2 PO (17:17)
[2024-04-05] MEDS ORDERED: LACT10SO3 PO (17:17)
[2024-04-05] MEDS ORDERED: PROG200C21 PO (17:17)
[2024-04-05] MEDS ORDERED: VENL75CA78 PO (17:17)
[2024-04-05] MEDS ORDERED: HYDR50TA69 PO (17:17)
[2024-04-05] MEDS ORDERED: FURO20TA3 PO (17:17)
[2024-04-06 05:00] VITALS: BP 139/78; PULSE 75; RESP 15; TEMP 98.9; O2SAT 93
[2024-04-06 09:00] VITALS: BP 142/93; PULSE 87; RESP 20; TEMP 98.4; O2SAT 92
[2024-04-06 12:31] VITALS: BP 116/78; PULSE 80; RESP 18; TEMP 98.1; O2SAT 98
[2024-04-06 16:54] VITALS: BP 131/69; PULSE 80; RESP 18; TEMP 98.6; O2SAT 96
[2024-04-07 06:36] LABS: Calcium 9.2 mg/dL (8.5-10.1); Chloride 105 mmol/L (98-107); Potassium 3.1 mmol/L (3.5-5.1); Sodium 135 mmol/L (136-145)
[2024-04-07 06:37] LABS: Anion Gap 5 (5-15); Carbon Dioxide 25 mmol/L (20-30)
[2024-04-07 06:42] LABS: BUN/Creatinine Ratio 23.7 (10.0-20.0); Blood Urea Nitrogen 23 mg/dL (9-23); Glucose 103 mg/dL (74-106)
[2024-04-07 09:00] VITALS: BP 135/79; PULSE 60; RESP 20; TEMP 98.1; O2SAT 97
[2024-04-07] MEDS: MAGNESIUM SULFATE 1GM/100ML 100 ML IV ONE (12:50)
[2024-04-07] MEDS: POTASSIUM EFFERVESENT TAB 25 MEQ PO ONE (12:54)
[2024-04-07 13:03] VITALS: BP 124/84; PULSE 68; RESP 18; TEMP 97.8; O2SAT 95
[2024-04-07 16:59] VITALS: BP 134/77; PULSE 71; RESP 20; TEMP 97.8; O2SAT 95
[2024-04-07 17:29] VITALS: BP 134/77; PULSE 71; RESP 20; TEMP 97.8; O2SAT 95
== END 2024-04-07 18:34 | disposition home health service (06) | DRG 91 ==
LOC: ER 23:33 → TELE 04-03 05:26 → EAST 04-03 05:26 → TELE-EAST 04-03 17:39 → EAST 04-06 00:21
PROVIDERS: ADMIT Nurse Practitioner Family; ATTEND Nurse Practitioner Acute Care
DX: G92.8 Other toxic encephalopathy (principal); J96.01 Acute respiratory failure with hypoxia; E66.9 Obesity, unspecified; F31.9 Bipolar disorder, unspecified; J44.9 Chronic obstructive pulmonary disease, unspecified; I50.9 Heart failure, unspecified; F17.210 Nicotine dependence, cigarettes, uncomplicated; K21.9 Gastro-esophageal reflux disease without esophagitis; G62.9 Polyneuropathy, unspecified; F10.10 Alcohol abuse, uncomplicated; Y90.9 Presence of alcohol in blood, level not specified; F41.9 Anxiety disorder, unspecified; G89.29 Other chronic pain; K74.60 Unspecified cirrhosis of liver; T40.605A Adverse effect of unspecified narcotics, initial encounter; I11.0 Hypertensive heart disease with heart failure; Z88.6 Allergy status to analgesic agent; Z88.5 Allergy status to narcotic agent; Z79.899 Other long term (current) drug therapy; Z90.49 Acquired absence of other specified parts of digestive tract; Z79.891 Long term (current) use of opiate analgesic; Y92.89 Other specified places as the place of occurrence of the external cause; Z99.81 Dependence on supplemental oxygen; Z68.28 Body mass index [BMI] 28.0-28.9, adult
CPT/HCPCS: 36415; 70450; 71045; 80048; 80053; 80307; 80320; 82140; 83880; 84132; 84484; 84702; 85025; 85610; 87081; 93005; 93306; G0378; J2001; J3490

== ENCOUNTER 2024-12-12 03:13 | Inpatient (IN) | payer OTHER ==
[2024-12-12] VITALS (8 sets, daily range): BP systolic 113–114; BP diastolic 60–62; PULSE 81–93; RESP 12–23; TEMP 97.2; O2SAT 92–100
[~2024-12-12] VITALS: Ht 160 cm; Wt 76.8 kg
[~2024-12-12 03:13] MED LIST changes: +ALBU108A5 IN; +ALLO300T2 PO; +ALPR0.5T8 PO; +ESTR0.5T5 PO; +FLUT1AER3 IN; +FURO20TA3 PO; +FURO20TA4 PO; +HYDR50TA69 PO; +LACT10SO3 PO; +MORP1TAB12 PO; +MORP30TA5 PO; +OXY5T PO; +PANT40T PO; +PREG200C19 PO; +PROG200C21 PO; +RIFA550T PO; +URSO300C2 PO; +VENL75CA78 PO; +ZOFR4T PO
--- NOTE | 2024-12-12 04:04 | ED.PDOC ---
History of Present Illness HPI Comments 48 y/o F is BIBA for c/o ALOC, today. Per EMS report, patient's family called after endorsing on patient becoming altered from her usual baseline after taking unspecified dose of morphine, earlier, this morning. EMS states on patient being "jittery" and "excessively moving" on scene after family reported on giving her Narcan prior after finding her altered. At time of assessment, patient is a poor historian and only comments on taking morphine, earlier, with no additional details surrounding event. Further history cannot be obtained, due to patient's current condition and absence of family/caretakers present. Chief Complaint: ALOC Time Seen by MD: 03:25 Reviewed Notes: Nurses Notes, Chief Operator Reformer Notes, Medications, Allergies Allergies: Coded Allergies: NO KNOWN ALLERGIES (Unverified , 12/12/24) Information Source: Patient, Emergency Med Personnel Mode of Arrival: Ambulatory Past Medical History PAST MEDICAL HISTORY: COPD Past Medical History (Other): chronic pain syndrome, obesity Surgical History: Unknown, Unobtainable, Pt Confused [facility] History: Denies all [facility] Hx, Unknown, Unobtainable, Pt Confused Family History Family History: Unknown, Unobtainable, Pt Confused Social History Smoker: Unknown, Unobtainable, Pt Confused Alcohol: Unknown, Unobtainable, Pt Confused Drugs: Unknown, Unobtainable, Pt Confused Lives In: Home All Other Systems: Reviewed and Negative (negative unless otherwise stated in HPI) Physical Exam General Appearance: No Apparent Distress, Obese, Other (somnolent) HEENT: Normal ENT Inspection, Pharynx Normal, TMs Normal Neck: Full Range of Motion, Non-Tender, Normal, Normal Inspection Respiratory: Chest Non-Tender, Lungs Clear, No Accessory Muscle Use, No Respiratory Distress, Normal Breath Sounds Cardiovascular: No Edema, No JVD, No Murmur, No Gallop, Normal Peripheral Pulses, Regular Rate/Rhythm Breast Exam: Deferred Gastrointestinal: No Organomegaly, Non Tender, No Pulsatile Mass, Normal Bowel Sounds, Soft Genitalia: Deferred Pelvic: Deferred Rectal: Deferred Extremities: No calf tenderness, Normal capillary refill, Normal inspection, Normal range of motion, Non-tender, No pedal edema Musculoskeletal : Apperance: Normal Neurologic: Alert, furniture installer II-XII nml as Tested, No Motor Deficits, Other (somnolent; response appropriately when aroused; limited touch and insight) Cerebellar Function: Normal Reflexes: Normal Skin: Dry, Normal Color, Warm Lymphatic: No Adenopathy Was a procedure done? Was a procedure done?: No Differential Dx Considerations may include: pain medication overdose, encephalopathy, electrolyte imbalance X-Ray, Labs, Meds, VS Vital Signs Date Time Temp Pulse Resp B/P (MAP) Pulse Ox O2 Delivery O2 Flow Rate FiO2 12/12/24 04:25 114 19 131/82 (98) 88 12/12/24 04:00 111 12/12/24 03:13 98.7 105 16 168/84 (112) 100 Lab Test 12/12/24 03:52 Range/Units White Blood Count 18.1 H 4.4-10.8 10^3/uL Red Blood Count 4.32 4.0-5.20 10^6/uL Hemoglobin 12.4 12.2-16.2 g/dL Hematocrit 37.6 36.0-46.0 % Mean Corpuscular Volume 86.9 80.0-100.0 fL Mean Corpuscular Hemoglobin 28.6 28.0-32.0 pg Mean Corpuscular Hemoglobin Concent 32.9 32.0-36.0 g/dL Red Cell Distribution Width 15.3 H 11.8-14.3 % Platelet Count 259 140-450 10^3/uL Mean Platelet Volume 6.5 L 6.9-10.8 fL Neutrophils (%) (Auto) 82.2 H 37.0-80.0 % Lymphocytes (%) (Auto) 10.5 10.0-50.0 % Monocytes (%) (Auto) 6.5 0.0-12.0 % Eosinophils (%) (Auto) 0.4 0.0-7.0 % Basophils (%) (Auto) 0.4 0.0-2.0 % Neutrophils # (Auto) 14.9 H 1.6-8.6 10 ^3/uL Lymphocytes # (Auto) 1.9 0.4-5.4 10 ^3/uL Monocytes # (Auto) 1.2 0-1.3 10 ^3/uL Eosinophils # (Auto) 0.1 0-0.8 10 ^3/uL Basophils # (Auto) 0.1 0-0.2 10 ^3/uL Nucleated Red Blood Cells 0.0 % Sodium Level 140 136-145 mmol/L Potassium Level 3.5 3.5-5.1 mmol/L Chloride Level 103 98-107 mmol/L Carbon Dioxide Level 30 20-31 mmol/L Anion Gap 7 5-15 Blood Urea Nitrogen 23 9-23 mg/dL Creatinine 1.28 H 0.550-1.02 mg/dL Glomerular Filtration Rate Calc 51 >90 mL/min BUN/Creatinine Ratio 18.0 10.0-20.0 Serum Glucose 62 L 74-106 mg/dL Lactic Acid Level 1.4 0.4-2.0 mmol/L Calcium Level 9.5 8.7-10.4 mg/dL Magnesium Level 2.0 1.6-2.6 mg/dL Total Bilirubin 0.3 0.2-1.0 mg/dL Aspartate Amino Transferase (AST) 47 H 13-40 U/L Alanine Aminotransferase (ALT) 39 7-40 U/L Alkaline Phosphatase 144 H 46-116 U/L Total Protein 6.3 5.7-8.2 g/dL Albumin 4.3 3.2-4.8 g/dL Salicylates Level < 3.0 -30 mg/dL Acetaminophen Level < 2.0 L 10.0-20.0 UG/ML Plasma/Serum Blood Alcohol < 3.0 <10 mg/dL Time of 1ST Reevaluation: 03:55 Reevaluation 1ST: Unchanged Time of 2ND Reevaluation: 06:01 Reevaluation 2ND: Unchanged Patient Education/Counseling: Other (patient is altered) Family Education/Counseling: No Family Present Departure 1 Departure Time of Disposition: 06:01 Impression: Primary Impression: Altered mental status Additional Impressions: Opiate overdose Suspected pulmonary aspiration of food Disposition: ADMITTED INPATIENT Condition: Guarded Discharged With: Self Critical Care Note Critical Care Time?: Yes (35 min-critical care time only) Critical care comment: Total critical care time: Approximately 36 minutes Due to a high probability of clinically significant, life threatening deterioration, the patient required my highest level of preparedness to intervene emergently and I personally spent this critical care time directly and personally managing the patient. This critical care time included obtaining a history; examining the patient; pulse oximetry; ordering and review of studies; arranging urgent treatment with development of a management plan; evaluation of patient's response to treatment; frequent reassessment; and, discussions with other providers. This critical care time was performed to assess and manage the high probability of imminent, life-threatening deterioration that could result in multi-organ failure. It was exclusive of separately billable procedures and treating other patients. Stability Stability form required: No Heart Score Heart Score: Heart Score Response (Comments) Value History N/A 0 EKG N/A 0 Age N/A 0 Risk Factors N/A 0 Troponin N/A 0 Total 0 I personally scribed for OTTO FLOREZ MD ([email or web address]) on 12/12/24 at 04:04. Electronically submitted by Dominik Capps ([email or web address]). OTTO FLOREZ MD Dec 12, 2024 04:04
[2024-12-12 04:07] LABS: Basophils # (auto) 0.1 10 ^3/uL (0-0.2); Basophils % (auto) 0.4 % (0.0-2.0); Eosinophils # (auto) 0.1 10 ^3/uL (0-0.8); Eosinophils % (auto) 0.4 % (0.0-7.0); Hematocrit 37.6 % (36.0-46.0); Hemoglobin 12.4 g/dL (12.2-16.2); Lymphocytes # (auto) 1.9 10 ^3/uL (0.4-5.4); Lymphocytes % (auto) 10.5 % (10.0-50.0); Mean Corpuscular Hemoglobin 28.6 pg (28.0-32.0); Mean Corpuscular Hgb Conc. 32.9 g/dL (32.0-36.0); Mean Corpuscular Volume 86.9 fL (80.0-100.0); Monocytes # (auto) 1.2 10 ^3/uL (0-1.3); Monocytes % (auto) 6.5 % (0.0-12.0); Neutrophils # (auto) 14.9 10 ^3/uL (1.6-8.6); Neutrophils % (auto) 82.2 % (37.0-80.0); Platelet Count (auto) 259 10^3/uL (140-450); Red Blood Cells 4.32 10^6/uL (4.0-5.20); Red Cell Distribution Width 15.3 % (11.8-14.3); White Blood Cell 18.1 10^3/uL (4.4-10.8)
[2024-12-12 04:37] LABS: Alanine Aminotransferase 39 U/L (7-40); Albumin 4.3 g/dL (3.2-4.8); Anion Gap 7 (5-15); Blood Urea Nitrogen 23 mg/dL (9-23); Calcium 9.5 mg/dL (8.7-10.4); Carbon Dioxide 30 mmol/L (20-31); Chloride 103 mmol/L (98-107); Sodium 140 mmol/L (136-145); Total Protein 6.3 g/dL (5.7-8.2)
[2024-12-12 04:48] LABS: Alkaline Phosphatase 144 U/L (46-116); Aspartate Aminotransferase 47 U/L (13-40); Bilirubin, Total 0.3 mg/dL (0.2-1.0); Blood Alcohol < 3.0 mg/dL (<10); Glucose 62 mg/dL (74-106); Potassium 3.5 mmol/L (3.5-5.1)
[2024-12-12 04:49] LABS: Acetaminophen < 2.0 UG/ML (10.0-20.0); Salicylate < 3.0 mg/dL (-30)
[2024-12-12] MEDS: PIPERACILLIN-TAZO 4.5GM 100 ML IV ONE (06:00)
--- NOTE | 2024-12-12 06:17 | DVH ---
EXAM: XY CHEST XRAY 1 VIEW HISTORY: ALOC after OD / narcan possible aspiration COMPARISON: None TECHNIQUE: Portable AP view of the chest was performed. FINDINGS: There is mild infiltrate in the right lung base. There is central peribronchial thickening. No pneumo thorax. The heart is not enlarged. IMPRESSION: 1. Right basilar infiltrate may be due to atelectasis, pneumonia, or scarring. Comparison with old est x-ray would be helpful in making this distinction. 2. Reactive airways disease.
[2024-12-12 07:31] LABS: Benzodiazephine Screen, Urine Pos (NEGATIVE); Cannabinoid Screen, Urine Pos (NEGATIVE); Phencyclidine Screen, Urine Neg (NEGATIVE)
[2024-12-12 07:56] LABS: Amphetamine Screen, Urine Neg (NEGATIVE); Barbiturate Scree,Urine Neg (NEGATIVE); Cocaine Screen, Urine Neg (NEGATIVE); Opiate Scree,Urine Pos (NEGATIVE)
[2024-12-12 08:06] LABS: Urine Bacteria FEW /hpf (None Seen); Urine Blood TRACE /uL (Negative); Urine Clarity Clear (Clear); Urine Color Light-Yellow (Yellow); Urine Hyaline Cast FEW /lpf (0 - 2); Urine Protein, UAD Negative (Negative); Urine Specific Gravity 1.009 (1.001-1.035); Urine Squamous Epithelial Cell FEW /hpf (<5); Urine Urobilinogen Normal (Negative); Urine WBC < 1 /HPF (0-5); Urine pH 6.5 (5.0-9.0)
[2024-12-12] MEDS: SODIUM CHLORIDE 0.9% 1,000 ML IV SCH (08:15)
[2024-12-12] MEDS ORDERED: hydrALAZINE HCL 20 MG/ML VL IV PRN (08:15)
[2024-12-12] MEDS ORDERED: ONDANSETRON HCL 4 MG/2 ML VIAL IV PRN (08:15)
[2024-12-12] MEDS ORDERED: METO25TA93 PO (08:24)
[2024-12-12] MEDS ORDERED: ESCI1TAB36 PO (08:24)
[2024-12-12] MEDS ORDERED: IPRATROPIUM BROM 0.5 MG/2.5ML INH SOL NEB PRN (08:30)
[2024-12-12] MEDS ORDERED: ALBUTEROL SULF 2.5 MG/0.5ML(0.5%) NEB SOLN NEB PRN (08:30)
--- NOTE | 2024-12-12 08:40 | DVHHP2 ---
History of Present Illness Reason for Visit: ALOC History of Present Illness This 48-year-old female presents in the ED via EMS with a chief complaint of ALOC. The patient with significant past medical history of chronic pain under pain management reports possible OD with morphine and Percocet leading to altered level of consciousness. Upon assessment, the patient is alert and oriented x3, she does not recall the event leading to ER visit. She states that she is under pain management and was given oxycodone which she does not do well on the medication. The patient appeared to be anxious and emotional who states needing to go home to attend to her pets. The patient denies dizziness, heada marry, chest pain, shortness of breath, or other acute symptoms. Patient reports past medical history of COPD liver cirrhosis from alcohol abuse, tobacco dependence, and chronic pain syndrome Past Medical History As stated in HPI Past Surgical History Right knee surgery Family History Reviewed, non-contributory to the management of this case. Smoke: <1 pack per day Past Social History Tobacco use half a pack a day Ex alcohol abuse Denies illicit drug use Review of Systems Constitutional: Yes: Malaise; No: Fever, Chills, Sweats, Weakness, Other Eyes: No: Pain, Vision change, Conjunctivae inflammation, Eyelid inflammation, Other, Redness ENT: No: Ear pain, Ear discharge, Nose pain, Nose discharge, Nose congestion, Mouth pain, Mouth swelling, Throat pain, Throat swelling, Other Respiratory: No: Cough, Dry, Shortness of breath, SOB with excertion, Wheezing, Hemoptysis, Pleuritic Pain, Sputum, Wheezing, Other Cardiovascular: No: Chest Pain, Palpitations, Orthopnea, Paroxysmal Noc. Dyspnea, Edema, Lt Headedness, Other Gastrointestinal: No: Nausea, Vomiting, Abdominal Pain, Diarrhea, Constipation, Melena, Hematochezia, Other Genitourinary: No Dysuria, No Frequency, No Incontinence, No Hematuria, No Retention, No Other Musculoskeletal: No: other, neck pain, shoulder pain, arm pain, back pain, hand pain, leg pain, foot pain Skin: No: Rash, Lesions, Jaundice, Bruising, Other Neurological: Confusion; No: Weakness, Numbness, Incoordination, Change in speech, Seizures, Other Allergies: Coded Allergies: NO KNOWN ALLERGIES (Unverified , 12/12/24) Exam Vital Signs Vital Signs Date Time Temp Pulse Resp B/P (MAP) Pulse Ox O2 Delivery O2 Flow Rate FiO2 12/12/24 08:00 88 12/12/24 07:00 14 123/68 (86) 12/12/24 04:25 88 12/12/24 03:13 98.7 General Appearance: Alert, Oriented X3, mild distress HEENT: Atraumatic, PERRLA, EOMI, Mucous membr. moist/pink Respiratory: Normal air movement, Other (Diminished lung sounds) Cardiovascular: Regular rate, Normal S1, Normal S2 Abdominal: Normal bowel sounds, Soft, No tenderness Extremities: No clubbing, No cyanosis, No edema, Normal pulses Skin: No rashes, No breakdown, No significant lesion Neuro: Normal speech, Normal tone Psych/Mental Status: Other (Anxious) Labs/Xrays Labs Test 12/12/24 06:33 12/12/24 03:52 12/12/24 03:31 Range/Units Lactic Acid Level 0.6 0.4-2.0 mmol/L White Blood Count 18.1 H 4.4-10.8 10^3/uL Red Blood Count 4.32 4.0-5.20 10^6/uL Hemoglobin 12.4 12.2-16.2 g/dL Hematocrit 37.6 36.0-46.0 % Mean Corpuscular Volume 86.9 80.0-100.0 fL Mean Corpuscular Hemoglobin 28.6 28.0-32.0 pg Mean Corpuscular Hemoglobin Concent 32.9 32.0-36.0 g/dL Red Cell Distribution Width 15.3 H 11.8-14.3 % Platelet Count 259 140-450 10^3/uL Mean Platelet Volume 6.5 L 6.9-10.8 fL Neutrophils (%) (Auto) 82.2 H 37.0-80.0 % Lymphocytes (%) (Auto) 10.5 10.0-50.0 % Monocytes (%) (Auto) 6.5 0.0-12.0 % Eosinophils (%) (Auto) 0.4 0.0-7.0 % Basophils (%) (Auto) 0.4 0.0-2.0 % Neutrophils # (Auto) 14.9 H 1.6-8.6 10 ^3/uL Lymphocytes # (Auto) 1.9 0.4-5.4 10 ^3/uL Monocytes # (Auto) 1.2 0-1.3 10 ^3/uL Eosinophils # (Auto) 0.1 0-0.8 10 ^3/uL Basophils # (Auto) 0.1 0-0.2 10 ^3/uL Nucleated Red Blood Cells 0.0 % Sodium Level 140 136-145 mmol/L Potassium Level 3.5 3.5-5.1 mmol/L Chloride Level 103 98-107 mmol/L Carbon Dioxide Level 30 20-31 mmol/L Anion Gap 7 5-15 Blood Urea Nitrogen 23 9-23 mg/dL Creatinine 1.28 H 0.550-1.02 mg/dL Glomerular Filtration Rate Calc 51 >90 mL/min BUN/Creatinine Ratio 18.0 10.0-20.0 Serum Glucose 62 L 74-106 mg/dL Calcium Level 9.5 8.7-10.4 mg/dL Magnesium Level 2.0 1.6-2.6 mg/dL Total Bilirubin 0.3 0.2-1.0 mg/dL Aspartate Amino Transferase (AST) 47 H 13-40 U/L Alanine Aminotransferase (ALT) 39 7-40 U/L Alkaline Phosphatase 144 H 46-116 U/L Total Protein 6.3 5.7-8.2 g/dL Albumin 4.3 3.2-4.8 g/dL Salicylates Level < 3.0 -30 mg/dL Acetaminophen Level < 2.0 L 10.0-20.0 UG/ML Plasma/Serum Blood Alcohol < 3.0 <10 mg/dL Urine Color Light-yellow Yellow Urine Clarity Clear Clear Urine pH 6.5 5.0-9.0 Urine Specific [place] 1.009 1.001-1.035 Urine Protein Negative Negative Urine Ketones Negative Negative Urine Blood Trace H Negative /uL Urine Nitrite Negative Negative Urine Bilirubin Negative Negative Urine Urobilinogen Normal Negative mg/dL Urine Leukocyte Esterase Negative Negative /uL Urine RBC <1 0 - 4 /hpf Urine Microscopic WBC < 1 0-5 /HPF Urine Squamous Epithelial Cells Few <5 /hpf Urine Bacteria Few H None Seen /hpf Urine Hyaline Casts Few 0 - 2 /lpf Urine Glucose Normal Normal mg/dL Urine Opiates Screen Pos NEGATIVE Urine Fentanyl Screen Neg NEGATIVE Urine Barbiturates Screen Neg NEGATIVE Urine Phencyclidine Screen Neg NEGATIVE Urine Amphetamines Screen Neg NEGATIVE Urine Benzodiazepines Screen Pos NEGATIVE Urine Cocaine Screen Neg NEGATIVE Urine Cannabinoids Screen Pos NEGATIVE PROCEDURE(s): CXR1 - CHEST XRAY 1 VIEW REASON: ALOC after OD / narcan possible aspiration ORDER NUMBER(s): [id number], ACCESSION NUMBER(s): [id number] EXAM: XY CHEST XRAY 1 VIEW HISTORY: ALOC after OD / narcan possible aspiration COMPARISON: None TECHNIQUE: Portable AP view of the chest was performed. FINDINGS: There is mild infiltrate in the right lung base. There is central peribronchial thickening. No pneumothorax. The heart is not enlarged. IMPRESSION: 1. Right basilar infiltrate may be due to atelectasis, pneumonia, or scarring. Comparison with old chest x-ray would be helpful in making this distinction. 2. Reactive airways disease. Assessment/Plan Assessment/Plan # toxic encephalopathy # possible narcotic OD # chronic pain syndrome Admit to telemetry unit CT head pending Avoid narcotics or benzos Monitor neuro # possible aspiration pneumonia # rule out sepsis Meropenem Chest x-ray in a.m. IV fluid Blood and sputum culture # ?hypertension, ?CHF Continue with metoprolol and Lasix Hydralazine prn # EVA on CKD IV fluid Monitor kidney function # hx of COPD DuoNeb # tobacco dependence Nicotine patch Smoking cessation counseled # anxiety/depression Escitalopram # GERD Protonix DVT prophylaxis Medical plan discussed with patient and RN Plan discussed with: Patient My Orders Orders - NICO LUCERO PROTOTYPE MACHINIST Procedure Category Date Status Time Admit ADMIT 12/12/24 Transmitted 08:08 Code Status CODE 12/12/24 Transmitted 08:08 0.9% Ns 1000 Ml PHA 12/12/24 Transmitted 08:15 Ondansetron Hcl PHA 12/12/24 Transmitted (Zofran) 08:15 Enoxaparin Sodium PHA 12/12/24 Transmitted (Lovenox) 10:00 Fall Risk Precautions AGGIE 12/12/[address] 08:08 Complete Blood Count LAB 12/13/24 Verified 04:00 Comprehensive LAB 12/13/24 Verified Metabolic Panel 04:00 Cardiac DIET 12/12/24 Transmitted Diet-2gna,Lofat,Lochol Breakfast Condition: Fair AGGIE 12/12/24 Transmitted 08:08 Hydralazine Injection PHA 12/12/24 Transmitted (Apresoline Inject 08:15 Meropenem 1gm Ivpb PHA 12/12/24 Transmitted Q8hr 08:15 Chest Portable XY 12/13/24 Transmitted 04:00 Date of Service: Dec 12, 2024 Billing Provider: NICO LUCERO Common Visit Codes: [id number] INP/OBS CARE (HIGH) NICO LUCERO Dec 12, 2024 08:40
[2024-12-12] MEDS ORDERED: FUROSEMIDE 20 MG TAB PO SCH (10:00)
[2024-12-12] MEDS: METOPROLOL SUCCINATE XL 50 MG TAB PO SCH (10:00)
[2024-12-12] MEDS: MEROPENEM 1GM IVPB 50 ML IV SCH (10:45)
[2024-12-12] MEDS: IPRATROPIUM BROM 0.5 MG/2.5ML INH SOL NEB SCH (11:23)
[2024-12-12] MEDS: ALBUTEROL SULF 2.5 MG/0.5ML(0.5%) NEB SOLN NEB SCH (11:23)
[2024-12-12] MEDS ORDERED: OXY5T PO (11:30)
[2024-12-12] MEDS ORDERED: MORP1TAB12 PO (11:30)
[2024-12-12] MEDS ORDERED: ALPR0.25 PO (11:30)
[2024-12-12] MEDS ORDERED: ACETAMINOPHEN 325 MG TAB PO PRN (13:30)
[2024-12-12] MEDS ORDERED: KETOROLAC TROMETH 30 MG/ML 1ML VIAL IV PRN (13:30)
--- NOTE | 2024-12-12 13:55 | DVH ---
EXAM: CT HEAD WITHOUT CONTRAST INDICATION: ALOC TECHNIQUE: CT of the head without intravenous contrast. Radiation Dose Information: CT Dose: CTDI volume is 50.83 mGy. Dose-length product is 814.95 mGy*cm The dose indicators for CT are the volume Computed Tomography (CT) Dose Index (CTDIvol) and the Dose Length Product (DLP), and are measured in units of mGy and mGy-cm, respectively. These indicators are not patient dose, but values generated from the CT scanner acquisition factors. The report includes radiation exposure data for exposures received during this examination. COMPARISON: None FINDINGS: There is no evidence of acute intracranial hemorrhage, extra-axial collection, mass effect, midline s hift, herniation or hydrocephalus. The ventricles, sulci and cisterns are age appropriate. The ordaz-white differentiation is intact. Patchy periventricular and subcortical white matter hypoattenuation is nonspecific but may be related to small vessel ischemic disease. Mucosal thickening in the sphenoid sinus on the right and mastoid air cells are clear. The surrounding soft tissues and osseous structures are unremarkable. IMPRESSION: 1. No acute intracranial hemorrhage. 2. No CT findings of territorial ischemia.
[2024-12-12] MEDS: ENOXAPARIN SOD 40 MG/0.4 ML SYRINGE SC SCH (14:02)
[2024-12-12] MEDS: CITALOPRAM HYDROBR 20 MG TAB PO SCH (14:02)
[2024-12-12] MEDS: NICOTINE 14 MG/24HR TOPICAL PATCH TD SCH (14:02)
[2024-12-12] MEDS: PANTOPRAZOLE 40 MG TAB PO SCH (14:03)
[2024-12-12] MEDS: VENLAFAXINE HCL 37.5mg XR cap PO SCH (14:03)
[2024-12-12] MEDS: hydrOXYzine 25 MG TAB or CAP PO PRN (14:03)
[2024-12-12 16:21] LABS: INR 1.06 (0.9-1.15); Prothrombin Time 11.2 sec (9.3-11.8)
[2024-12-12] MEDS ORDERED: OXYCODONE W/ ACETAMINOPHEN 5/325MG TABLET PO PRN (19:45)
[2024-12-12] MEDS: SODIUM CHLORIDE 0.9% 500 ML IV ONE (19:49)
[2024-12-13] VITALS (10 sets, daily range): BP systolic 97–120; BP diastolic 50–72; PULSE 74–84; RESP 14–19; TEMP 97.1–97.7; O2SAT 84–100
[2024-12-13 07:35] LABS: Basophils # (auto) 0 10 ^3/uL (0-0.2); Basophils % (auto) 0.4 % (0.0-2.0); Eosinophils # (auto) 0.1 10 ^3/uL (0-0.8); Eosinophils % (auto) 2.5 % (0.0-7.0); Hematocrit 34.6 % (36.0-46.0); Hemoglobin 11.3 g/dL (12.2-16.2); Lymphocytes # (auto) 2.1 10 ^3/uL (0.4-5.4); Lymphocytes % (auto) 38.4 % (10.0-50.0); Mean Corpuscular Hemoglobin 28.8 pg (28.0-32.0); Mean Corpuscular Hgb Conc. 32.7 g/dL (32.0-36.0); Monocytes # (auto) 0.6 10 ^3/uL (0-1.3); Monocytes % (auto) 10.1 % (0.0-12.0); Neutrophils # (auto) 2.7 10 ^3/uL (1.6-8.6); Neutrophils % (auto) 48.6 % (37.0-80.0); Nucleated Red Blood Cells % 0.1 %; Platelet Count (auto) 187 10^3/uL (140-450); Red Blood Cells 3.94 10^6/uL (4.0-5.20); Red Cell Distribution Width 15.5 % (11.8-14.3); White Blood Cell 5.5 10^3/uL (4.4-10.8)
[2024-12-13 07:52] LABS: Alanine Aminotransferase 32 U/L (7-40); Albumin 3.5 g/dL (3.2-4.8); Alkaline Phosphatase 104 U/L (46-116); Anion Gap 2 (5-15); Aspartate Aminotransferase 33 U/L (13-40); BUN/Creatinine Ratio 15.6 (10.0-20.0); Blood Urea Nitrogen 20 mg/dL (9-23); Potassium 3.7 mmol/L (3.5-5.1); Sodium 143 mmol/L (136-145)
[2024-12-13 08:02] LABS: Bilirubin, Total 0.3 mg/dL (0.2-1.0); Calcium 8.3 mg/dL (8.7-10.4); Carbon Dioxide 31 mmol/L (20-31); Chloride 110 mmol/L (98-107); Glucose 117 mg/dL (74-106); Total Protein 5.2 g/dL (5.7-8.2)
--- NOTE | 2024-12-13 08:41 | DVH ---
CHEST RADIOGRAPH Indication: Pneumonia Technique: Single frontal view of the chest was obtained Comparison: XY CHEST XRAY 1 VIEW on DOS: 12/12/24 FINDINGS: Lines and Tubes: None Lungs: Right basilar infiltrate may be due to atelectasis, pneumonia, or scarring. Pleura: No effusion. No pneumothorax. Cardiomediastinal contours: Unremarkable Bones: No acute osseous abnormality. IMPRESSION: Right basilar infiltrate may be due to atelectasis, pneumonia, or scarring.
--- NOTE | 2024-12-13 14:43 | DVHDS2 ---
Discharge Summary Date of Admission Dec 12, 2024 at 08:08 Date of Discharge: Dec 13, 2024 Labs/Diagnostic Data: Laboratory Results Test 12/13/24 06:43 12/12/24 15:09 12/12/24 06:33 12/12/24 03:52 White Blood Count 5.5 10^3/uL (4.4-10.8) Red Blood Count 3.94 10^6/uL (4.0-5.20) Hemoglobin 11.3 g/dL (12.2-16.2) Hematocrit 34.6 % (36.0-46.0) Mean Corpuscular Volume 88.0 fL (80.0-100.0) Mean Corpuscular Hemoglobin 28.8 pg (28.0-32.0) Mean Corpuscular Hemoglobin Concent 32.7 g/dL (32.0-36.0) Red Cell Distribution Width 15.5 % (11.8-14.3) Platelet Count 187 10^3/uL (140-450) Mean Platelet Volume 7.0 fL (6.9-10.8) Neutrophils (%) (Auto) 48.6 % (37.0-80.0) Lymphocytes (%) (Auto) 38.4 % (10.0-50.0) Monocytes (%) (Auto) 10.1 % (0.0-12.0) Eosinophils (%) (Auto) 2.5 % (0.0-7.0) Basophils (%) (Auto) 0.4 % (0.0-2.0) Neutrophils # (Auto) 2.7 10 ^3/uL (1.6-8.6) Lymphocytes # (Auto) 2.1 10 ^3/uL (0.4-5.4) Monocytes # (Auto) 0.6 10 ^3/uL (0-1.3) Eosinophils # (Auto) 0.1 10 ^3/uL (0-0.8) Basophils # (Auto) 0 10 ^3/uL (0-0.2) Nucleated Red Blood Cells 0.1 % Sodium Level 143 mmol/L (136-145) Potassium Level 3.7 mmol/L (3.5-5.1) Chloride Level 110 mmol/L (98-107) Carbon Dioxide Level 31 mmol/L (20-31) Anion Gap 2 (5-15) Blood Urea Nitrogen 20 mg/dL (9-23) Creatinine 1.28 mg/dL (0.550-1.02) Glomerular Filtration Rate Calc 51 mL/min (>90) BUN/Creatinine Ratio 15.6 (10.0-20.0) Serum Glucose 117 mg/dL (74-106) Calcium Level 8.3 mg/dL (8.7-10.4) Total Bilirubin 0.3 mg/dL (0.2-1.0) Aspartate Amino Transferase (AST) 33 U/L (13-40) Alanine Aminotransferase (ALT) 32 U/L (7-40) Alkaline Phosphatase 104 U/L (46-116) Total Protein 5.2 g/dL (5.7-8.2) Albumin 3.5 g/dL (3.2-4.8) Prothrombin Time 11.2 sec (9.3-11.8) Prothrombin Time INR 1.06 (0.9-1.15) Ammonia 37 umol/L (11-32) Lactic Acid Level 0.6 mmol/L (0.4-2.0) Magnesium Level 2.0 mg/dL (1.6-2.6) Salicylates Level < 3.0 mg/dL (-30) Acetaminophen Level < 2.0 UG/ML (10.0-20.0) Plasma/Serum Blood Alcohol < 3.0 mg/dL (<10) Test 12/12/24 03:31 Urine Color Light-yellow (Yellow) Urine Clarity Clear (Clear) Urine pH 6.5 (5.0-9.0) Urine Specific [place] 1.009 (1.001-1.035) Urine Protein Negative (Negative) Urine Ketones Negative (Negative) Urine Blood Trace /uL (Negative) Urine Nitrite Negative (Negative) Urine Bilirubin Negative (Negative) Urine Urobilinogen Normal mg/dL (Negative) Urine Leukocyte Esterase Negative /uL (Negative) Urine RBC <1 /hpf (0 - 4) Urine Microscopic WBC < 1 /HPF (0-5) Urine Squamous Epithelial Cells Few /hpf (<5) Urine Bacteria Few /hpf (None Seen) Urine Hyaline Casts Few /lpf (0 - 2) Urine Glucose Normal mg/dL (Normal) Urine Opiates Screen Pos (NEGATIVE) Urine Fentanyl Screen Neg (NEGATIVE) Urine Barbiturates Screen Neg (NEGATIVE) Urine Phencyclidine Screen Neg (NEGATIVE) Urine Amphetamines Screen Neg (NEGATIVE) Urine Benzodiazepines Screen Pos (NEGATIVE) Urine Cocaine Screen Neg (NEGATIVE) Urine Cannabinoids Screen Pos (NEGATIVE) Other Laboratory Tests 12/13/24 06:43 Brief Hx & Hospital Course: Final diagnoses: Drug overdose Toxic metabolic encephalopathy COPD Alcoholic liver cirrhosis I came to see the patient in room 245 be, the patient is not there, the patient has left AMA Condition at Discharge: Undetermined Final Diagnosis/Problems List Drug OD Discharge Disposition: AMA SNF Discharge Will this Physician continue t: No Discharge Statement: "Patient was advised to return to the ER or call 911 if any headaches, dizziness, shortness of breath, chest pain, abdominal pain, bleeding, fevers, or worsening of medical condition. Patient was counseled about treatment plan, medications, possible side effects, patientverbalized understanding. All questions were answered to the best of my ability. This discharge took greater then 30 minutes in planning, reviewing documentation, counseling the patient, and discussing with other team members." ASSESSMENT ASSESSMENT Assessment Date of Service: Dec 13, 2024 Billing Provider: ANDREAS MARION MD Common Visit Codes: NOT BILLABLE ANDREAS MARION MD Dec 13, 2024 14:43
== END 2024-12-13 13:24 | disposition left against medical advice (07) | DRG 917 ==
LOC: ER 03:13 → EDBD 03:13 → MERGE 08:08 → OVERFLOW 08:08 → TELE-EAST 21:56
PROVIDERS: ADMIT Internal Medicine Geriatric Medicine; ATTEND Internal Medicine Geriatric Medicine
DX: T40.601A Poisoning by unspecified narcotics, accidental (unintentional), initial encounter (principal); G92.8 Other toxic encephalopathy; N17.9 Acute kidney failure, unspecified; G89.4 Chronic pain syndrome; Z53.29 Procedure and treatment not carried out because of patient's decision for other reasons; E66.9 Obesity, unspecified; K70.30 Alcoholic cirrhosis of liver without ascites; J44.9 Chronic obstructive pulmonary disease, unspecified; N18.9 Chronic kidney disease, unspecified; F17.200 Nicotine dependence, unspecified, uncomplicated; F10.10 Alcohol abuse, uncomplicated; Y90.9 Presence of alcohol in blood, level not specified; F32.A Depression, unspecified; F41.9 Anxiety disorder, unspecified; K21.9 Gastro-esophageal reflux disease without esophagitis; Z71.6 Tobacco abuse counseling; Y92.89 Other specified places as the place of occurrence of the external cause; Z68.30 Body mass index [BMI] 30.0-30.9, adult
CPT/HCPCS: 36415; 70450; 71045; 80053; 80307; 80320; 80329; 81001; 82140; 83605; 83735; 85025; 85610; 87040; 94640; 96365; 99291; G0378; J2185; J2543